=== PATIENT | female | born 1975 | race Caucasian/White ===

== ENCOUNTER 2024-11-04 10:33 | Emergency (ER) | payer OTHER, SELFPAY ==
[2024-11-04] VITALS (13 sets, daily range): BP systolic 103–138; BP diastolic 61–81; PULSE 89–102; RESP 15–24; TEMP 36.4–36.8; O2SAT 95–100; BMI 35.7
--- NOTE | 2024-11-04 11:04 | EDS_ITS ---
HPI History of Present Illness Chief Complaint: Allergic Reaction Informant: patient, friend and EMS Narrative Narrative: 49-year-old female presenting to the emergency room with anaphylaxis. Patient states she took Mounjaro for the first time this morning. She states that immediately after taking it she began to feel heart palpitations and then her head began to feel flushed. She began to have diffuse itching and developed urticaria. EMS notes that the patient became hypotensive en route. She did not have vomiting or diarrhea. She denies any difficulty swallowing. EMS administered epinephrine Solu-Medrol and Benadryl in addition to the Benadryl dose that she took prior to their arrival. She states she feels that she is doing better but still has itching and hives. PFSH PFSH Home Medications ?Medication ?Instructions ?Recorded ?Last Taken ?Type fluoxetine 20 mg capsule 20 mg PO DAILY 11/04/2410/24 History prednisone 20 mg tablet 60 mg (3 x 20 mg) PO DAILY # 15 11/04/24 Unknown Rx TABLETS Allergy/AdvReac Type Severity Reaction Status Date / Time Penicillins Allergy Hives Verified 11/04/24 10:37 tirzepatide Allergy Hives Verified 11/04/24 10:37 Surgical History Hx of ovarian cystectomy Hx of section Social History Smoking Status: Never smoker ROS ROS ED Constitutional Constitutional ED: Denies chills or weight loss Eyes Eyes: Denies change in vision or diplopia ENT ENT ED: Denies ear pain, rhinorrhea or sore throat Cardiovascular Cardiovascular: Denies chest pain, orthopnea, palpitations or racing heartbeat Respiratory/Chest Respiratory/Chest: Denies cough, dyspnea or orthopnea Gastrointestinal Gastrointestinal: Denies abdominal pain, diarrhea, nausea or vomiting Genitourinary Genitourinary ED: Denies dysuria, hematuria or urinary frequency Musculoskeletal Musculoskeletal: Denies arthralgias or myalgias Integumentary Reports other Details: Hives urticaria ; Denies abscess Neurologic Neurologic: Denies headache(s) or weakness Psychiatric Psychiatric: Denies anxiety, depression, suicidal ideation or suicidal thoughts Endocrine Endocrinology: Denies polydipsia, polyphagia or polyuria Allergic/Immunologic Allergic/Immunologic ED: Denies mouth swelling, tongue swelling or urticaria EXAM Physical Exam Const Vital Signs: 11/04/24 10:34 11/04/24 11:30 11/04/24 11:33 Temperature 97.5 F L Temperature Source Oral Pulse Rate 93 89 91 Respiratory Rate 15 20 H 18 Blood Pressure 126/81 H 137/74 H 132/74 H Blood Pressure Mean 96 93 93 Pulse Ox 97 100 98 Oxygen Delivery Method Room Air Room Air 11/04/24 12:00 11/04/24 12:00 11/04/24 12:15 Temperature Temperature Source Pulse Rate 93 90 Respiratory Rate 19 H 20 H Blood Pressure 138/77 H 133/77 H 130/70 H Blood Pressure Mean 97 94 87 Pulse Ox 100 99 Oxygen Delivery Method 11/04/24 12:30 11/04/24 12:45 11/04/24 13:00 Temperature Temperature Source Pulse Rate 92 93 Respiratory Rate 21 H 18 Blood Pressure 108/62 108/61 103/63 Blood Pressure Mean 76 75 75 Pulse Ox 99 97 Oxygen Delivery Method 11/04/24 13:15 11/04/24 13:30 Temperature Temperature Source Pulse Rate 100 102 H Respiratory Rate 23 H 22 H Blood Pressure 130/76 H 130/77 H Blood Pressure Mean 93 92 Pulse Ox 98 98 Oxygen Delivery Method Positive well nourished and well developed General Appearance ED: well developed; Negative for pallor HEENT Reports normocephalic, head/scalp atraumatic and moist mucous membranes HEENT Narrative: No lip swelling no swelling of tongue or uvula there is no stridor Eyes PERRL and EOMs intact bilaterally Eyes Narrative: Mild edema of the eyelids Neck no lymphadenopathy, supple and no JVD Resp normal respiratory effort and clear to auscultation bilaterally Cardio regular rate, regular rhythm and no murmurs GI normal to inspection, nondistended, normoactive bowel sounds and non-tender Palpation: soft Back/Spine no CVA tenderness and normal ROM Extremity normal to inspection General Extremety ED: Negative for edema General Extremity: Negative for edema Neuro oriented x3 and CN's II-XII intact bilaterally Sensorium / Orientation: alert Motor Exam: strength 5/5 throughout Psych mental status grossly normal Mood & Affect: Negative for depressed or tearful Skin no wounds Skin Narrative: Patient has diffuse urticaria General Skin Exam: Negative for jaundice or pallor MDM MDM MDM Narrative Medical decision making narrative: Differential diagnosis includes anaphylactic shock allergic reaction urticaria respiratory failure/distress angioedema Patient was placed on the monitor given additional Benadryl as well as Pepcid and was observed. I reevaluated the patient at 1220 hrs. Patient's urticaria has fully resolved and she is no longer itching. We will continue to observe. Patient has had no return of her symptoms. Patient I discussed her upcoming trip to [place] and she will have access to EMS if need be. We talked about steroids and Benadryl. We talked about following up with her primary care doctor discuss the [place] History & Record Review Discussion w/independent historian: EMS personnel and Patient Discharge Plan Triage Chief Complaint: Allergic Reaction ED Provider: Tristan Rocha Dx/Rx/DC Orders Clinical Impression: Drug-induced anaphylaxis Instructions: ED Anaphylaxis Prescriptions: New prednisone 20 mg tablet 60 mg PO DAILY Qty: 15 0RF No Action fluoxetine 20 mg capsule 20 mg PO DAILY Primary Care Provider: Care Physician,No Primary Referrals: [facility] Doctor,Out of [Non-Staff] - Activity Restrictions/Additional Instructions: I would recommend Benadryl [id number] 25 mg every 6-8 hours as needed for symptoms. I wrote a prescription for prednisone which she may use as well. While at the pharmacy you may wish to purchase some Pepcid which is a good hi stamine erasto as well. Please return to the emergency department if you have return of your symptoms. Please discuss your anaphylactic reaction to the medication with your doctor Print Language: Guatemalan Disposition Disposition: Home, Self Care
[2024-11-04] MEDS: DiphenhydrAMINE 50 MG/ML Syringe 25 MG IV (11:11)
[2024-11-04] MEDS: Famotidine 200 MG/20 ML MDV 20 MG in 0.9% Normal Saline (Pres. free 8 ML 300 MG IV (11:12)
--- NOTE | 2024-11-04 14:53 | CM.ED ---
Social Work SW met with patient due to patient not having a PCP. Patient states she would like information regarding local PCP. [facility] provider list given. No further needs identified at this time. Shannan Mendez, CARRIAGE OPERATOR, RADIO TESTER
== END 2024-11-04 14:35 | disposition home or self-care (01) ==
PROVIDERS: Emergency Provider Emergency Medicine; Visit Provider Emergency Medicine
DX: T88.6XXA Anaphylactic reaction due to adverse effect of correct drug or medicament properly administered, initial encounter (principal); T50.995A Adverse effect of other drugs, medicaments and biological substances, initial encounter; Z90.6 Acquired absence of other parts of urinary tract
CPT/HCPCS: 96365; 96375; 99285; A4216